=== PATIENT | female | born 1990 | race Caucasian/White ===

== ENCOUNTER 2018-09-02 14:00 | Inpatient (IN) | payer MEDICAID ==
[2018-09-02 15:40] LABS: Bacteria,Urine 1+ /HPF (Negative); Bilirubin,Urine NEG (Negative); Blood,Urine NEG (Negative); Color,Urine Yellow (Yellow); Protein,Urine <15 mg/dL mg/dL (Negative); Urobilinogen,Urine < 2.0 mg/dL (<2.0)
[2018-09-02 16:05] LABS: Hematocrit 30.9 % (30.3-42.9); Hemoglobin 10.2 gm/dl (10.1-14.3); Mean Corpuscular HGB Conc 33 % (30-34); Mean Corpuscular Volume 74 fl (79-97); Platelet Count 105 K/mm3 (140-440); Red Blood Count 4.15 M/mm3 (3.65-5.03); Red Cell Distribution Width 17.7 % (13.2-15.2)
[2018-09-02 16:22] LABS: Alanine Aminotransferase 9 units/L (7-56); Uric Acid 4.3 mg/dL (3.5-7.6)
[2018-09-02] MEDS ORDERED: BRETHINE SUB-Q PRN ×2 (19:36→21:27)
[2018-09-02] MEDS ORDERED: BRETHINE IVP PRN ×2 (19:36→21:27)
[2018-09-02] MEDS ORDERED: MINERAL OIL PO PRN (19:36)
[2018-09-02] MEDS ORDERED: XYLOCAINE 2% INFILTRATI ONE (19:36)
[2018-09-02 21:17] LABS: Hematocrit 33.3 % (30.3-42.9); Hemoglobin 10.9 gm/dl (10.1-14.3); Mean Corpuscular HGB Conc 33 % (30-34); Mean Corpuscular Volume 75 fl (79-97); Platelet Count 104 K/mm3 (140-440); Red Blood Count 4.48 M/mm3 (3.65-5.03); Red Cell Distribution Width 17.9 % (13.2-15.2)
[2018-09-02] MEDS ORDERED: ZOFRAN IV PRN (21:27)
[2018-09-02] MEDS ORDERED: NARCAN 0.4 MG/1 ML IV PRN (21:27)
[2018-09-02] MEDS ORDERED: CERVIDIL VG ONE (22:53)
[2018-09-03] MEDS ORDERED: PEPCID IV ONE ×2 (03:08→03:24)
[2018-09-03] MEDS: LACTATED RINGERS 1,000 ML IV SCH ×3 (03:21→19:25)
[2018-09-03] MEDS ORDERED: TYLENOL PO PRN (03:30)
[2018-09-03] MEDS ORDERED: AMBIEN PO PRN (03:30)
--- NOTE | 2018-09-03 08:12 | History and Physical Report ---
History of Present Illness Date of examination: 09/03/18 Date of admission: 09/03/18 04:02 Chief complaint: Contractions History of present illness: 28 yo Fe , TYREE 09/03/2018 (OBUS), presents to triage to R/O labor. Admitted for IOL d/t IUP @ term, BPP 6/8, JILLIAN 7.6. Pt initiated care with Malick Chavez Molding Manager at 10w3d. Known hx of gestational Thrombocytopenia (02/16; 164), Varicella NI. labs: B positive, Rubella Immune, VDRL Non-reactive, HBsAg Negative, HSV2 Neg, HIV negative, GC/CL/Trich Negative, 1hr GTT 103, GBS Negative. 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 denies: smoking, alcohol abuse, prescription drug abuse, IV drug use - Obstetrical History Expected Date of Delivery: 09/03/18 Actual Gestation: 40 Week(s) 0 Day(s) : 2 Para: 1 Hx # Term Pregnancies: 1 Number of Pregnancies: 0 Spontaneous Abortions: 0 Induced : 0 Number of Living Children: 1 #1 Gender: Male year: 2[age][birth year] Birthweight: 3.714 kg Method of Delivery: Vaginal Gestational age at delivery: 40 (Thrombocytopenia) Complications: none Medications and Allergies Allergies Allergy/AdvReac Type Severity Reaction Status Date / Time No Known Allergies Allergy Verified 07/03/15 12:55 Home Medications Medication Instructions Recorded Confirmed Last Taken Type Tablet 1 tab PO DAILY 07/03/15 07/14/18 07/13/18 History Ferrous Sulfate [Feosol] 325 mg PO BID 07/13/15 07/14/18 07/11/18 History Amoxicillin/K Clav Tab [Augmentin 1 tab PO Q12HR 10 Days #20 tab 07/16/18 Unknown Rx 875 mg] Ferrous Sulfate [Feosol 325 MG tab] 325 mg PO BID 30 Days #60 tablet 07/16/18 Unknown Rx Meclizine [Antivert] 25 mg PO TID PRN 10 Days #30 tablet 07/16/18 Unknown Rx Active Meds: Active Medications Acetaminophen (Tylenol) 650 mg PO Q6H PRN PRN Reason: Pain, Mild (1-3) Ephedrine Sulfate (Ephedrine Sulfate) 10 mg IV Q2M PRN PRN Reason: Hypotension Lactated Ringer's (Lactated Ringers) 1,000 mls @ 125 mls/hr IV DIRECT ALFA Last Admin: 09/03/18 03:21 Dose: 125 mls/hr Documented by: Oxytocin/Sodium Chloride (Pitocin/Ns 20 Unit/1000ml Drip) 20 units in 1,000 mls @ 125 mls/hr IV DIRECT ALFA Mineral Oil (Mineral Oil) 30 ml PO QHS PRN PRN Reason: Constipation Naloxone HCl (Narcan 0.4 Mg/1 Ml) 0.1 mg IV Q2MIN PRN PRN Reason: Res Rate </= 8 or 02 SAT < 92% Ondansetron HCl (Zofran) 4 mg IV Q8H PRN PRN Reason: Nausea And Vomiting Terbutaline Sulfate (Brethine) 0.25 mg SUB-Q ONCE PRN PRN Reason: Hyperstimulation/Hypertonicity Terbutaline Sulfate (Brethine) 0.25 mg SUB-Q ONCE PRN PRN Reason: Hyperstimulation/Hypertonicity Zolpidem Tartrate (Ambien) 10 mg PO QHS PRN PRN Reason: Insomnia Review of Systems Eyes: normal appearance Cardiovascular: no chest pain, no shortness of breath Respiratory: no shortness of breath Breasts: normal Gastrointestinal: no nausea, no vomiting, no diarrhea Genitourinary: normal appearance, contractions, no vaginal bleeding, no vaginal discharge, no leakage of fluid, no pelvic pain, no genital sores Integumentary: no rash, no sores, no lesions Endocrine: other (PCOS) - Vital Signs Vital signs: Vital Signs Pulse BP 73 132/83 09/02/18 14:48 09/02/18 14:48 Temp Pulse Resp BP Pulse Ox 98.7 F 86 20 134/88 09/02/18 14:50 09/03/18 07:03 09/02/18 14:50 09/03/18 07:03 - Physical Exam Breasts: Positive: normal Cardiovascular: Regular rate, Normal S1, Normal S2, No murmurs Lungs: Positive: Clear to auscultation, Normal air movement Abdomen: Positive: normal appearance, soft, normal bowel sounds. Negative: distention Genitourinary (Female): Positive: normal external genitalia, normal perenium Vulva: both: normal Vagina: Positive: normal moisture Uterus: Positive: enlarged (Gravid) Anus/Rectum: Positive: normal perianal skin Extremities: Positive: normal Deep Tendon Reflex Grade: Normal +2 - Obstetrical FHR: category 1 Uterine Contraction Monitor Mode: External Cervical Dilatation: 3 (BOW intact; Cervidil removed) Cervical Effacement Percentage: 80 station: -1 Uterine Contraction Pattern: Irregular Uterine Tone Measurement Phase: Resting Results Result Diagrams: 09/02/18 20:18 09/02/18 15:29 Abnormal lab results 09/02/18 09/02/18 09/02/18 Range/Units 15:29 15:29 20:18 MCV 74 L 75 L (79-97) fl MCH 24 L 24 L (28-32) pg RDW 17.7 H 17.9 H (13.2-15.2) % Plt Count 105 L 104 L (140-440) K/mm3 Creatinine 0.6 L (0.7-1.2) mg/dL Lactate Dehydrogenase 185 H (91-180) units/L All other labs normal. Assessment and Plan A: Term IUP 40w0d Category 1 tracing GBS Negative Thrombocytopenia; Admission platelets 104 BPP 6/8;Cervidil IOL P: Admit to L&D; Routine labor orders Cervidil removed Pt may shower Pitocin Augmentation Anticiapte
--- NOTE | 2018-09-03 09:07 | Ultrasound Report ---
PROCEDURE: US OB BPP WO NON-STRESS, US OB FOLLOW UP TECHNIQUE: Obstetrical ultrasound was performed HISTORY: well being COMPARISONS: None FINDINGS: Sonographic imaging demonstrates a single live intrauterine gestation. heart rate measures 128 bpm. A 0 was awarded for breathing movements. 2 was awarded for movements, posture and tone and qualitative amniotic fluid volume. Biophysical profile total score 6/8. IMPRESSION: Biophysical profile score 6/8. 0 was awarded for breathing movements. heart rate measures 128 bpm. This document is electronically signed by Alona Martin MD., September 02 2018 06:26:55 PM ET
[2018-09-03] MEDS ORDERED: PITOCin/NS 30 UNIT/500ML 30 UNITS/500 ML BAG IV SCH (10:00)
[2018-09-03] MEDS ORDERED: AFLURIA QUAD 2018-2019 SYRINGE IM ONE (12:00)
[2018-09-03] MEDS: STADOL IV PRN ×2 (15:27→17:27)
--- NOTE | 2018-09-03 15:41 | Progress Note ---
Assessment and Plan A: Term IUP 40w0d Category 1 tracing GBS Negative Pitocin 8mu Thrombocytopenia; Admission platelets 104 AROM 09/03/18 @15:06, lg amt clear fluid P: Continue routine labor orders May have IV pain med Anticiapte Subjective - Subjective Date of service: 09/03/18 (15:06) Principal diagnosis: Labor Interval history: 28 yo Fe , TYREE 09/03/2018 (OBUS), presents to triage to R/O labor. Admitted for IOL d/t IUP @ term, BPP 6/8, JILLIAN 7.6. Pt initiated care with Malick Chavez Hop Weigher at 10w3d. Known hx of gestational Thrombocytopenia (02/16; 164), Varicella NI. labs: B positive, Rubella Immune, VDRL Non-reactive, HBsAg Negative, HSV2 Neg, HIV negative, GC/CL/Trich Negative, 1hr GTT 103, GBS Negative. Patient reports: movement normal, contractions, no loss of fluid, no vaginal bleeding Objective - Vital Signs Vital Signs: Vital Signs - 12hr 09/03/18 09/03/18 09/03/18 07:03 09:14 10:34 Temperature Pulse Rate 86 84 75 Respiratory Rate Blood Pressure 134/88 146/87 118/75 09/03/18 09/03/18 09/03/18 11:04 11:34 12:20 Temperature 98.3 F Pulse Rate 77 75 Respiratory 20 Rate Blood Pressure 104/63 123/83 09/03/18 09/03/18 09/03/18 12:34 13:04 13:34 Temperature Pulse Rate 77 83 71 Respiratory Rate Blood Pressure 124/82 134/83 132/84 09/03/18 09/03/18 09/03/18 14:04 15:27 15:34 Temperature Pulse Rate 74 67 Respiratory 20 Rate Blood Pressure 134/78 116/55 - Exam Breasts: normal Cardiovascular: Regular rate, Normal S1, Normal S2, No murmurs Lungs: Clear to auscultation, Normal air movement Abdomen: Present: normal appearance, soft, normal bowel sounds. Absent: distention Vulva: both: normal Uterus: Present: firm (gravid) FHR: category 1 Uterine Contraction Monitor Mode: External Cervical Dilatation: 4 (AROM 09/03/18 @ 15:06, large amt clear fluid) Cervical Effacement Percentage: 90 station: -1 Uterine Contraction Frequency (min): 2-4 Uterine Contraction Pattern: Regular Uterine Tone Measurement Phase: Resting Uterine Contraction Intensity: Moderate Extremities: normal Deep Tendon Reflex Grade: Normal +2 - Labs Labs: Abnormal Labs 09/02/18 09/02/18 09/02/18 15:29 15:29 20:18 MCV 74 L 75 L MCH 24 L 24 L RDW 17.7 H 17.9 H Plt Count 105 L 104 L Creatinine 0.6 L Lactate Dehydrogenase 185 H Laboratory Results - last 24 hr 09/02/18 09/02/18 09/02/18 14:16 15:29 15:29 WBC 7.3 RBC 4.15 Hgb 10.2 Hct 30.9 MCV 74 L MCH 24 L MCHC 33 RDW 17.7 H Plt Count 105 L Creatinine 0.6 L Estimated GFR > 60 Uric Acid 4.3 AST 17 ALT 9 Lactate Dehydrogenase 185 H Urine Color Yellow Urine Turbidity Clear Urine pH 6.0 Ur Specific [place] 1.013 Urine Protein <15 mg/dl Urine Glucose (UA) Neg Urine Ketones Neg Urine Blood Neg Urine Nitrite Neg Urine Bilirubin Neg Urine Urobilinogen < 2.0 Ur Leukocyte Esterase Tr Urine WBC (Auto) 1.0 Urine RBC (Auto) 1.0 U Epithel Cells (Auto) 1.0 Urine Bacteria (Auto) 1+ RPR Blood Type Antibody Screen 09/02/18 09/02/18 09/02/18 20:18 20:18 20:18 WBC 7.5 RBC 4.48 Hgb 10.9 Hct 33.3 MCV 75 L MCH 24 L MCHC 33 RDW 17.9 H Plt Count 104 L Creatinine Estimated GFR Uric Acid AST ALT Lactate Dehydrogenase Urine Color Urine Turbidity Urine pH Ur Specific [place] Urine Protein Urine Glucose (UA) Urine Ketones Urine Blood Urine Nitrite Urine Bilirubin Urine Urobilinogen Ur Leukocyte Esterase Urine WBC (Auto) Urine RBC (Auto) U Epithel Cells (Auto) Urine Bacteria (Auto) RPR Nonreactive Blood Type B POSITIVE Antibody Screen Negative
--- NOTE | 2018-09-03 18:05 | Event Note ---
Date: 09/03/18 Assumed care of patient. Cervix is . Patient has already been medicated with Stadol for pain.
[2018-09-03] MEDS: PITOCin/NS 20 UNIT/1000ML DRIP 20 UNITS/1,000 ML BAG IV SCH ×2 (21:07→22:00)
[2018-09-03] MEDS ORDERED: CYTOTEC ONE (21:10)
[2018-09-03] MEDS ORDERED: CYTOTEC PR ONE (21:10)
[2018-09-03] MEDS ORDERED: XYLOCAINE 2% INFILTRATI ONE (21:14)
[2018-09-03] MEDS ORDERED: LANSINOH TP PRN (22:01)
[2018-09-03] MEDS ORDERED: MILK OF MAGNESIA PO PRN (22:01)
[2018-09-03] MEDS ORDERED: TUCKS PAD TP PRN (22:01)
[2018-09-03 22:05] LABS: Hematocrit 29.4 % (30.3-42.9); Hemoglobin 9.5 gm/dl (10.1-14.3)
--- NOTE | 2018-09-03 22:17 | Procedure Note ---
OB Delivery Note - Delivery Date of Delivery: 09/03/18 Surgeon: RANDALL WAITE Estimated blood loss: 500cc - Vaginal Delivery presentation: vertex Delivery position: OA Intrapartum events: hemorrhage Delivery induction: oxytocin Delivery augmentation: rupture of membranes Delivery monitor: external FHT, external uterine Route of delivery: Delivery placenta: spontaneous Delivery cord: 3 umbilical vessels Episiotomy: none Delivery laceration: 2nd degree Delivery repair: vicryl Anesthesia: local Delivery comments: Spontaneous vaginal delivery at 21:04 of liveborn female infant weighing 8 lb. 4 oz. over 2nd degree midline perineal laceration with apgars of 9/9. Baby placed immediately skin to skin with mom after , dried, bulb suctioned, and stimulated. Spontaneous cry and respirations. 3 vessel cord double clamped and cut after cessation of pulsation. Spontaneous delivery of intact placenta and membranes by daniel mechanism at 21:07. EBL 500 cc. Pitocin to IV fluids after delivery of placenta. Fundus firm and midline. Cytotec 800 micrograms given rectally. Vaginal sweep negative. Second degree perineal laceration repaired with 2-0 vicryl. Sponge count correct. Mother and baby stable in birthing room. H&H ordered for now; to be repeated in the morning.
[2018-09-03] MEDS: NORCO 5/325 PO PRN (22:22)
[2018-09-03] MEDS ORDERED: SODIUM CHLORIDE FLUSH SYRINGE 10 ML IV NR (23:00)
[2018-09-03] MEDS: IBUPROFEN PO SCH (23:23)
[2018-09-03] MEDS: COLACE PO SCH (23:39)
[2018-09-03] MEDS: FEOSOL PO SCH (23:39)
[2018-09-04] MEDS: ZOFRAN IV PRN (02:13)
[2018-09-04] MEDS: IBUPROFEN PO SCH ×3 (06:16→20:10)
[2018-09-04] MEDS ORDERED: DERMOPLAST TP PRN (06:18)
[2018-09-04] MEDS: COLACE PO SCH ×2 (10:04→22:00)
[2018-09-04] MEDS: FEOSOL PO SCH (10:09)
--- NOTE | 2018-09-04 10:26 | Progress Note ---
Assessment and Plan A: day 1 S/P spontaneous vaginal delivery. Anemia secondary to and blood loss. P: Continue iron supplementation. Anticipate discharge 24-48 hrs. Subjective - Subjective Date of service: 09/04/18 Principal diagnosis: day 1 S/P spontaneous vaginal delivery Interval history: day 1 S/P spontaneous vaginal delivery. Doing well. Patient reports a small amount of lochia. Patient is voiding without difficulty. Tolerating regular vegetarian diet without nausea or vomiting. Ambulating well. Patient denies headache, cough, chest pain, shortness of breath, abdominal pain, leg pain, or heavy bleeding. Patient reports: appetite normal, voiding normally, pain well controlled, flatus, ambulating normally, no dizzy ambulation, no nauseated Campbell: doing well Objective - Vital Signs Latest vital signs: Vital Signs Temp Pulse Resp BP BP Pulse Ox 09/04/18 07:41 98.5 F 73 18 124/77 100 09/04/18 06:16 20 09/04/18 04:40 98.2 F 74 18 115/69 09/03/18 23:22 20 09/03/18 23:15 98.2 F 70 18 125/80 09/03/18 22:34 73 125/75 09/03/18 22:22 18 09/03/18 21:37 86 127/79 09/03/18 21:36 98.4 F 86 18 127/79 09/03/18 20:34 88 140/92 09/03/18 20:04 83 130/78 09/03/18 19:34 72 114/77 09/03/18 19:20 98.0 F 81 20 111/58 111/58 09/03/18 19:04 76 124/58 09/03/18 18:34 76 129/84 09/03/18 18:04 73 137/63 09/03/18 18:00 98.4 F 20 09/03/18 17:34 67 102/59 09/03/18 17:27 20 09/03/18 17:04 81 139/80 09/03/18 16:34 71 124/78 09/03/18 16:05 69 114/59 09/03/18 15:34 67 116/55 09/03/18 15:27 20 09/03/18 15:00 98.1 F 20 09/03/18 14:04 74 134/78 09/03/18 13:34 71 132/84 09/03/18 13:04 83 134/83 09/03/18 12:34 77 124/82 09/03/18 12:20 98.3 F 20 09/03/18 11:34 75 123/83 09/03/18 11:04 77 104/63 09/03/18 10:34 75 118/75 Intake and Output 09/03/18 09/04/18 09/04/18 23:59 07:59 15:59 Intake Total 1153.284 240 Output Total 300 Balance 1153.284 -60 Intake: IV 1153.284 Lactated Ringers 1,000 ml 1000 @ 125 mls/hr IV DIRECT ALFA Rx#:[id number] PITOCin/NS 20 UNIT/1000ML 110.417 DRIP 20 units In 1,000 ml @ 125 mls/hr IV DIRECT ALFA Rx#:[id number] PITOCin/NS 30 UNIT/500ML 42.867 30 units In 500 ml @ 2 MILLIUNITS/MIN 2 mls/hr IV TITR ALFA Rx#:[id number] Oral 240 Output: Urine 300 Void 300 Other: Total, Intake Amount 240 Total, Output Amount 300 # Voids Void 1 3 Estimated Blood Loss 500 - Exam Cardiovascular: Present: Regular rate, Normal S1, Normal S2 Lungs: Present: Clear to auscultation Abdomen: Present: normal appearance, soft. Absent: distention, tenderness, guarding, rigidity Uterus: Present: normal, firm, fundal height below umbilicus. Absent: bogginess, tenderness Extremities: Present: normal. Absent: tenderness, edema - Labs Labs: Abnormal lab results 09/03/18 Range/Units 21:51 Hgb 9.5 L (10.1-14.3) gm/dl Hct 29.4 L (30.3-42.9) %
[2018-09-04] MEDS: NORCO 5/325 PO PRN ×2 (13:58→19:34)
[2018-09-04 21:32] LABS: Hematocrit 23.9 % (30.3-42.9); Hemoglobin 7.8 gm/dl (10.1-14.3)
[2018-09-04] MEDS ORDERED: TUCKS PAD TP PRN (23:45)
[2018-09-04] MEDS ORDERED: IBUPROFEN PO SCH (23:45)
[2018-09-04] MEDS ORDERED: NORCO 5/325 PO PRN (23:45)
[2018-09-04] MEDS ORDERED: DULCOLAX PR PRN (23:45)
[2018-09-04] MEDS ORDERED: MILK OF MAGNESIA PO PRN (23:45)
[2018-09-04] MEDS ORDERED: SODIUM CHLORIDE FLUSH SYRINGE 10 ML IV NR (23:45)
[2018-09-04] MEDS ORDERED: LANSINOH TP PRN (23:45)
[2018-09-05] MEDS: IBUPROFEN PO SCH (00:31)
[2018-09-05] MEDS: NORCO 5/325 PO PRN ×4 (00:33→18:02)
[2018-09-05] MEDS: ZOFRAN IV PRN ×3 (00:38→21:09)
[2018-09-05] MEDS: FEOSOL PO SCH ×3 (00:39→21:09)
[2018-09-05] MEDS ORDERED: COLACE PO SCH (10:00)
[2018-09-05 12:33] LABS: Hematocrit 23.7 % (30.3-42.9); Hemoglobin 7.7 gm/dl (10.1-14.3)
--- NOTE | 2018-09-05 14:43 | Progress Note ---
Assessment and Plan A: day 1 S/P spontaneous vaginal delivery with hemorrhage. Severe anemia, symptomatic secondary to blood loss (patient declines blood transfusion and Ferrous Sulfate). Thrombocytopenia. Palpitations, dizziness; history of near syncope. P: Discussed symptomatic anemia with patient and offered patient a blood transfu louis. Patient declined blood transfusion. Patient declined iron supplementation. Hospitalist consult placed. EKG, platelet count, CMP and thyroid labs ordered. Pt. to seek assistance when ambulating. Subjective - Subjective Date of service: 09/05/18 Principal diagnosis: day 2 S/P spontaneous vaginal delivery Interval history: day 2 S/P spontaneous vaginal delivery with hemorrhage and repair of 2nd degree perineal laceration. Patient reports a small amount of lochia and denies clots. Patient has severe anemia (she had a hemorrhage immediately after of baby and placenta). She reports dizziness, especially with standing or stooping. Patient declines blood transfusion. She refused to take iron supplements here in hospital but states she will take them at home. Patient denies chest pain or shortness of breath. She reports palpitations intermittently; she states she has had these during her entire . She reports several syncopal and near syncopal episodes during this . She describes an episode early in her where she blacked out for about 10 minutes. She denies headache or visual disturbance. She denies leg pain. She reports occasional nausea. Patient is eating a regular vegetarian diet. She is voiding without difficulty. Patient reports: appetite normal, voiding normally, dizzy ambulation, pain well controlled, nauseated : doing well Objective - Vital Signs Latest vital signs: Vital Signs Temp Pulse Resp BP BP Pulse Ox 09/05/18 07:43 97.7 F 64 20 108/74 96 09/05/18 00:00 98.2 F 78 20 121/74 09/04/18 22:06 97.6 F 65 16 124/85 98 09/04/18 16:52 98.0 F 76 20 109/73 98 Intake and Output 09/04/18 09/05/18 09/05/18 23:59 07:59 15:59 Intake Total 240 480 Balance 240 480 Intake: Oral 240 480 Other: Total, Intake Amount 240 120 # Voids Void 1 1 1 - Exam Cardiovascular: Present: Normal S1, Normal S2, Other (Slightly irregular ) Lungs: Present: Clear to auscultation Abdomen: Present: normal appearance, soft, normal bowel sounds. Absent: distention, tenderness, guarding, rigidity Uterus: Present: normal, firm, fundal height below umbilicus. Absent: bogginess, tenderness Extremities: Present: normal. Absent: tenderness - Labs Labs: Abnormal lab results 09/04/18 09/05/18 Range/Units 21:15 11:47 Hgb 7.8 L 7.7 L (10.1-14.3) gm/dl Hct 23.9 L 23.7 L (30.3-42.9) %
[2018-09-05 17:30] LABS: Alanine Aminotransferase 11 units/L (7-56); BUN/Creatinine Ratio 16; Blood Urea Nitrogen 8 mg/dL (7-17); Calcium 8.8 mg/dL (8.4-10.2); Hemolysis Index 7
[2018-09-05] MEDS: COLACE PO SCH ×2 (18:02→22:39)
--- NOTE | 2018-09-05 18:53 | Consultation ---
History of Present Illness - Reason for Consult Consult date: 09/05/18 Symptomatic Anemia, Dizziness, Palpitations Requesting physician: RANDALL WAITE - History of Present Illness 28 YO Female with no PMH admitted for IUP with hemorrhage. Consult paced for Palpitations and dizziness. Pt seen and evaluated in her room. Pt denies fever, chills, CP, Dizzziness, Palpitations, Syncope, NVD, Trauma, BRBPR, Productive cough, Skin rash, or recent ill contacts. Pt acknowledges feeling weak and lightheaded. No reported nursing events. Past History Past Medical History: No medical history (reviewed) Past Surgical History: No surgical history, Other (reviewed) Social history: no significant social history, , lives with family, full code. denies: smoking, alcohol abuse, prescription drug abuse, IV drug use Family history: no significant family history (reviewed) Medications and Allergies Allergies Allergy/AdvReac Type Severity Reaction Status Date / Time No Known Allergies Allergy Verified 07/03/15 12:55 Home Medications Medication Instructions Recorded Confirmed Last Taken Type Tablet 1 tab PO DAILY 07/03/15 09/03/18 07/13/18 History Ferrous Sulfate [Feosol 325 MG tab] 325 mg PO BID 30 Days #60 tablet 07/16/18 09/03/18 Unknown Rx Famotidine [Pepcid] 20 mg PO QDAY 09/03/18 09/03/18 Unknown History Active Meds: Active Medications Acetaminophen/Hydrocodone Bitart ([place] 5/325) 2 each PO Q6H PRN PRN Reason: Pain, Moderate (4-6) Last Admin: 09/05/18 18:02 Dose: 2 each Documented by: Bisacodyl (Dulcolax) 10 mg [place] BID PRN PRN Reason: Constipation Docusate Sodium (Colace) 100 mg PO BID [facility] Last Admin: 09/05/18 18:02 Dose: 100 mg Documented by: Ferrous Sulfate (Feosol) 325 mg PO TID [facility] Last Admin: 09/05/18 13:43 Dose: 325 mg Documented by: Ondansetron HCl (Zofran) 4 mg IV Q6H PRN PRN Reason: Nausea And Vomiting Last Admin: 09/05/18 13:57 Dose: 4 mg Documented by: Sodium Chloride (Sodium Chloride Flush Syringe 10 Ml) 10 ml IV PRN NR Stop: 09/05/18 23:44 Review of Systems Constitutional: weakness Ears, nose, mouth and throat: no ear pain, no tinnitis, no nose pain Breasts: no change in shape, no swelling Cardiovascular: lightheadedness, no chest pain, no palpitations, no rapid/irregular heart beat, no dyspnea on exertion, no claudication, no high blood pressure Respiratory: no cough, no excessive sputum, no shortness of breath Gastrointestinal: no abdominal pain, no vomiting, no constipation Genitourinary Female: no pelvic pain, no flank pain, no dysuria Rectal: no pain, no incontinence, no hemorrhoids Musculoskeletal: no neck stiffness, no shooting arm pain, no low back pain Integumentary: no rash, no redness, no wounds Neurological: no head injury, no paralysis, no numbness Psychiatric: no anxiety, no sleep disturbances, no hypersomnia, no change in libido Endocrine: no cold intolerance, no polyphagia, no polydipsia Hematologic/Lymphatic: no easy bruising, no easy bleeding Allergic/Immunologic: no urticaria, no allergic rhinitis Exam - Constitutional Vitals: Temp Pulse Resp BP Pulse Ox 98.7 F 69 18 107/67 97 09/05/18 16:06 09/05/18 16:06 09/05/18 18:02 09/05/18 16:06 09/05/18 16:06 General appearance: Present: no acute distress, well-nourished - EENT Eyes: Present: PERRL ENT: hearing intact, clear oral mucosa - Neck Neck: Present: supple, normal ROM - Respiratory Respiratory effort: normal Respiratory: bilateral: CTA - Cardiovascular Heart Sounds: Present: S1 & S2. Absent: rub, click - Extremities Extremities: pulses symmetrical, No edema Peripheral Pulses: within normal limits - Abdominal General gastrointestinal: Present: soft, non-tender, non-distended, normal bowel sounds Female genitourinary: Present: normal - Integumentary Integumentary: Present: clear, warm, dry - Musculoskeletal Musculoskeletal: gait normal, strength equal bilaterally - Psychiatric Psychiatric: appropriate mood/affect, intact judgment & insight - Neurologic Neurologic: CNII-XII intact, moves all extremities Results - Labs CBC & Chem 7: 09/05/18 16:34 09/05/18 16:34 Labs: Abnormal lab results 04/11/1709/05/18 09/05/18 Range/Units 21:15 11:47 16:34 Hgb 7.8 L 7.7 L (10.1-14.3) gm/dl Hct 23.9 L 23.7 L (30.3-42.9) % Plt Count (140-440) K/mm3 Creatinine 0.5 L (0.7-1.2) mg/dL Total Protein 5.7 L (6.3-8.2) g/dL Albumin 3.0 L (3.9-5) g/dL 09/05/18 Range/Units 16:34 Hgb (10.1-14.3) gm/dl Hct (30.3-42.9) % Plt Count 89 L (140-440) K/mm3 Creatinine (0.7-1.2) mg/dL Total Protein (6.3-8.2) g/dL Albumin (3.9-5) g/dL Assessment and Plan - Patient Problems (1) Dizziness Current Visit: No Status: Acute Plan to address problem: EKG reviewed, neuro check conducted and is normal. Echo ordered and in pending, (2) Anemia Current Visit: Yes Status: Acute Plan to address problem: Blood Loss Anemia: Suspect anemia as cause of symptoms. Pt declines Fe therapy and blood transfusion prior to consult being place. Risks and benefits reexplained to patient. Pt acknowledges understanding risks and benefits, but refuses transfusion.
[2018-09-06] MEDS ORDERED: DERMOPLAST TP PRN (02:31)
[2018-09-06] MEDS ORDERED: TUCKS PAD TP PRN (02:33)
[2018-09-06] MEDS: ZOFRAN IV PRN (07:52)
[2018-09-06] MEDS: FEOSOL PO SCH ×2 (07:52→15:40)
[2018-09-06] MEDS: COLACE PO SCH (09:53)
[2018-09-06] MEDS: NORCO 5/325 PO PRN (09:53)
--- NOTE | 2018-09-06 11:39 | Progress Note ---
Assessment and Plan - Patient Problems (1) Status post normal vaginal delivery Current Visit: Yes Status: Acute Plan to address problem: PPD 3 - stable Continue routine PP orders Sitz baths encouraged Anticipate discharge later today based on ECHO report and clearance by Hospitalist (2) Anemia due to blood loss, acute Current Visit: Yes Status: Acute Plan to address problem: Currently asymptomatic S/p Hospitalist Consult; ECHO ordered and pending Continue iron therapy Subjective - Subjective Date of service: 09/06/18 Principal diagnosis: PPD #3; s/p complicated by PPH and symptomatic anemia Interval history: see H&P, OB Progress Note, Event Note, OB Delivery Procedure Note, PP/VAN DRIVER Progress Notes and Consult Note Patient reports: appetite normal, voiding normally, pain well controlled, ambulating normally, no dizzy ambulation Murphy: doing well, other (breast and bottle feeding) Objective - Vital Signs Latest vital signs: Vital Signs Temp Pulse Resp BP BP Pulse Ox 09/06/18 08:19 97.9 F 100 H 16 117/77 100 09/06/18 01:06 98.2 F 100 H 20 121/80 09/05/18 18:02 18 09/05/18 16:06 98.7 F 69 20 107/67 97 Intake and Output 09/05/18 09/06/18 09/06/18 23:59 07:59 15:59 Intake Total 440 Balance 440 Intake: Oral 440 Other: Total, Intake Amount 240 # Voids Void 1 1 - Exam Cardiovascular: Present: Regular rate Lungs: Present: Clear to auscultation Abdomen: Present: normal appearance, soft Vulva: both: laceration/episiotomy (well approximated) Uterus: Present: normal, firm, fundal height below umbilicus Extremities: Present: normal Comments: scant lochia - Labs Labs: Abnormal lab results 09/05/18 09/05/18 09/05/18 Range/Units 11:47 16:34 16:34 Hgb 7.7 L (10.1-14.3) gm/dl Hct 23.7 L (30.3-42.9) % Plt Count 89 L (140-440) K/mm3 Creatinine 0.5 L (0.7-1.2) mg/dL Magnesium (1.7-2.3) mg/dL Total Protein 5.7 L (6.3-8.2) g/dL Albumin 3.0 L (3.9-5) g/dL 09/05/18 Range/Units 19:44 Hgb (10.1-14.3) gm/dl Hct (30.3-42.9) % Plt Count (140-440) K/mm3 Creatinine (0.7-1.2) mg/dL Magnesium 1.60 L (1.7-2.3) mg/dL Total Protein (6.3-8.2) g/dL Albumin (3.9-5) g/dL
--- NOTE | 2018-09-06 14:04 | Progress Note ---
Assessment and Plan Assessment and plan: 28 YO Female with no PMH admitted for IUP with hemorrhage. Consult paced for Palpitations and dizziness. Pt seen and evaluated in her room. Pt denies fever, chills, CP, Dizzziness, Palpitations, Syncope, NVD, Trauma, BRBPR, Productive cough, Skin rash, or recent ill contacts. Pt acknowledges feeling weak and lightheaded. No reported nursing events. Near syncope-resolved Anemia-stable Thrombocytopenia-No bleeding Plan Disussed diagnosis with patient and spouse, She refuses transfuion and will rather follow outpatient Ok for discharge, recommend outpatient Hematology eval due to Thrombocytopenia and Anemia with declining Transfusion. Thank you for allowing us take part in the care of your patient. History Interval history: Patient seen and examined today no acute distress anxious to go home Hospitalist Physical - Physical exam Narrative exam: VITAL SIGNS: Reviewed. GENERAL: The patient appeared well nourished and normally developed, Vital signs as documented. HEAD: No signs of head trauma. EYES: Pupils are equal. Extraocular motions intact. EARS: Hearing grossly intact. MOUTH: Oropharynx is normal. NECK: No adenopathy, no JVD. CHEST: Chest with clear breath sounds bilaterally. No wheezes, rales, or rhonchi. CARDIAC: Regular rate and rhythm. S1 and S2, without murmurs, gallops, or rubs. VASCULAR: No Edema. Peripheral pulses normal and equal in all extremities. ABDOMEN: Soft, non tender and non distended. No rebound or guarding, and no masses palpated. Bowel Sounds normal. MUSCULOSKELETAL: Good range of motion of all major joints. Extremities without clubbing, cyanosis or edema. NEUROLOGIC EXAM: Alert and oriented x 3 No focal sensory or strength deficits. Speech normal. Follows commands. PSYCHIATRIC: Mood normal. SKIN: No rash or lesions. - Constitutional Vitals: Temp Pulse Resp BP Pulse Ox 97.9 F 100 H 16 117/77 100 09/06/18 08:19 09/06/18 08:19 09/06/18 08:19 09/06/18 08:19 09/06/18 08:19 General appearance: Present: no acute distress, well-nourished Results - Labs CBC & Chem 7: 09/05/18 16:34 09/05/18 16:34 Labs: Laboratory Last Values WBC 7.5 K/mm3 (4.5-11.0) 09/02/18 20:18 RBC 4.48 M/mm3 (3.65-5.03) 09/02/18 20:18 Hgb 7.7 gm/dl (10.1-14.3) L 09/05/18 11:47 Hct 23.7 % (30.3-42.9) L 09/05/18 11:47 MCV 75 fl (79-97) L 09/02/18 20:18 MCH 24 pg (28-32) L 09/02/18 20:18 MCHC 33 % (30-34) 09/02/18 20:18 RDW 17.9 % (13.2-15.2) H 09/02/18 20:18 Plt Count 89 K/mm3 (140-440) L 09/05/18 16:34 Sodium 139 mmol/L (137-145) 09/05/18 16:34 Potassium 4.3 mmol/L (3.6-5.0) 09/05/18 16:34 Chloride 104.0 mmol/L (98-107) 09/05/18 16:34 Carbon Dioxide 25 mmol/L (22-30) 09/05/18 16:34 Anion Gap 14 mmol/L 09/05/18 16:34 BUN 8 mg/dL (7-17) 09/05/18 16:34 Creatinine 0.5 mg/dL (0.7-1.2) L 09/05/18 16:34 Estimated GFR > 60 ml/min 09/05/18 16:34 BUN/Creatinine Ratio 16 % 09/05/18 16:34 Glucose 79 mg/dL (65-100) 09/05/18 16:34 Uric Acid 4.3 mg/dL (3.5-7.6) 09/02/18 15:29 Calcium 8.8 mg/dL (8.4-10.2) 09/05/18 16:34 Magnesium 1.60 mg/dL (1.7-2.3) L 09/05/18 19:44 Total Bilirubin < 0.20 mg/dL (0.1-1.2) 09/05/18 16:34 AST 18 units/L (5-40) 09/05/18 16:34 ALT 11 units/L (7-56) 09/05/18 16:34 Alkaline Phosphatase 127 units/L (35-129) 09/05/18 16:34 Lactate Dehydrogenase 185 units/L (91-180) H 09/02/18 15:29 Total Protein 5.7 g/dL (6.3-8.2) L 09/05/18 16:34 Albumin 3.0 g/dL (3.9-5) L 09/05/18 16:34 Albumin/Globulin Ratio 1.1 % 09/05/18 16:34 TSH 3.610 mlU/mL (0.270-4.200) 09/05/18 16:39 Free T4 0.94 ng/dL (0.76-1.46) 09/05/18 16:39 Urine Color Yellow (Yellow) 09/02/18 14:16 Urine Turbidity Clear (Clear) 09/02/18 14:16 Urine pH 6.0 (5.0-7.0) 09/02/18 14:16 Ur Specific [place] 1.013 (1.003-1.030) 09/02/18 14:16 Urine Protein <15 mg/dl mg/dL (Negative) 09/02/18 14:16 Urine Glucose (UA) Neg mg/dL (Negative) 09/02/18 14:16 Urine Ketones Neg mg/dL (Negative) 09/02/18 14:16 Urine Blood Neg (Negative) 09/02/18 14:16 Urine Nitrite Neg (Negative) 09/02/18 14:16 Urine Bilirubin Neg (Negative) 09/02/18 14:16 Urine Urobilinogen < 2.0 mg/dL (<2.0) 09/02/18 14:16 Ur Leukocyte Esterase Tr (Negative) 09/02/18 14:16 Urine WBC (Auto) 1.0 /HPF (0.0-6.0) 09/02/18 14:16 Urine RBC (Auto) 1.0 /HPF (0.0-6.0) 09/02/18 14:16 U Epithel Cells (Auto) 1.0 /HPF (0-13.0) 09/02/18 14:16 Urine Bacteria (Auto) 1+ /HPF (Negative) 09/02/18 14:16 RPR Nonreactive (Nonreactive) 09/02/18 20:18 Blood Type B POSITIVE 09/02/18 20:18 Antibody Screen Negative 09/02/18 20:18 Active Medications - Current Medications Current Medications: Generic Name Dose Route Start Last Admin Trade Name Freq PRN Reason Stop Dose Admin Acetaminophen/Hydrocodone Bitart 2 each 09/05/18 06:01 09/06/18 09:53 [place] 5/325 PO 2 each Q6H PRN Administration Pain, Moderate (4-6) Benzocaine/Menthol 1 spray 09/06/18 02:31 09/06/18 06:20 Dermoplast TP 1 spray PRN PRN Administration Episiotomy Pain Bisacodyl 10 mg 09/04/18 23:45 Dulcolax ID BID PRN Constipation Docusate Sodium 100 mg 09/05/18 16:00 09/06/18 09:53 Colace PO 100 mg BID ALFA Administration Ferrous Sulfate 325 mg 09/05/18 14:00 09/06/18 07:52 Feosol PO 325 mg TID ALFA Administration Ondansetron HCl 4 mg 09/05/18 13:46 09/06/18 07:52 Zofran IV 4 mg Q6H PRN Administration Nausea And Vomiting Witch Dorinda/Glycerin 1 each 09/06/18 02:33 09/06/18 06:21 Tucks Pad TP 1 each PRN PRN Administration Hemorrhoids
[2018-09-06 16:15] VITALS: BP 117/61
--- NOTE | 2018-09-06 16:50 | Discharge Summary ---
Providers - Providers Date of Admission: 09/03/18 04:02 Date of discharge: 09/06/18 Attending physician: JESUS BLOUNT MD 09/05/18 14:52 Consult to Physician [CONS] Urgent Comment: Consulting Provider: ISAEL MOY Physician Instructions: Reason For Exam: Dizziness, palpitations Primary care physician: JESUS BLOUNT MD Hospitalization Reason for admission: induction of labor, IUP at term Delivery: Episiotomy: none Laceration: 2nd degree Other procedures: none Discharge diagnosis: IUP at term delivered baby: female Hospital course: complicated by PPH, thrombocytopenia and symptomatic anemia. Patient declined a blood transfusion. Currently asymptomatic and on iron therapy. Condition at discharge: Stable Disposition: DC- TO HOME OR SELFCARE - Discharge Diagnoses (1) Status post normal vaginal delivery Status: Acute (2) Anemia due to blood loss, acute Status: Acute Comment: Asymptomatic Continue iron therapy (3) Thrombocytopenia Status: Acute Comment: Asymptomatic Follow up with Hematology, as recommended by Hospitalist Plan - Provider Discharge Summary Activity: routine, no sex for 6 weeks, no heavy lifting 4 weeks, no strenuous exercise Diet: routine Instructions: routine Additional instructions: [] Smoking cessation referral if applicable(refer to patient education folder for contact #) [] Refer to [facility] Book[facility] Call your doctor immediately for: * Fever > 100.5 * Heavy vaginal bleeding ( >1 pad per hour) * Severe persistent headache * Shortness of breath * Reddened, hot, painful area to leg or breast * Drainage or odor from incision. * Keep incision clean and dry at all times and follow doctor's instructions regarding bathing/showering - Follow up plan Follow up: JESUS BLOUNT MD [Primary Care Provider] - 6 Weeks (Follow up at [facility] as needed or in 6 weeks for exam) Forms: [facility] Discharge Summary, Discharge Signature Page
[2018-09-06] MEDS ORDERED: BOOSTRIX IM ONE (17:00)
[2018-09-06] MEDS ORDERED: AFLURIA QUAD 2018-2019 SYRINGE IM ONE (17:00)
== END 2018-09-06 18:00 | disposition home or self-care (01) | DRG 774 ==
LOC: TRG 14:00 → LD 09-03 04:02 → OB 09-03 23:01
PROVIDERS: ADMIT Obstetrics & Gynecology; ATTEND Obstetrics & Gynecology
PROC: 10E0XZZ Delivery of Products of Conception, External Approach (ICD-10-PCS; principal; 2018-09-03)
PROC: 0KQM0ZZ Repair Perineum Muscle, Open Approach (ICD-10-PCS; 2018-09-03)
PROC: 10907ZC Drainage of Amniotic Fluid, Therapeutic from Products of Conception, Via Natural or Artificial Opening (ICD-10-PCS; 2018-09-03)
PROC: 3E0234Z Introduction of Serum, Toxoid and Vaccine into Muscle, Percutaneous Approach (ICD-10-PCS; 2018-09-06)
DX: O99.12 Other diseases of the blood and blood-forming organs and certain disorders involving the immune mechanism complicating childbirth (principal); O72.1 Other immediate postpartum hemorrhage; Z3A.40 40 weeks gestation of pregnancy; Z37.0 Single live birth; D62 Acute posthemorrhagic anemia; Z23 Encounter for immunization; O90.81 Anemia of the puerperium
CPT/HCPCS: 36415; 59200; 76816; 76819; 80053; 81001; 82565; 83615; 83735; 84439; 84443; 84450; 84460; 84550; 85014; 85018; 85027; 85049; 86592; 86850; 86900; 86901; 90686; 90715; 93005; 93010; 93306; G0378; J0595; J2405; J2590; J7120